=== PATIENT | male | born 1960 | race Caucasian/White ===

== ENCOUNTER 2016-03-25 21:54 | Emergency (ER) | payer OTHER ==
--- NOTE | 2016-03-25 22:03 | UCPHY ---
H & P Time Seen by Provider: 03/25/16 21:59 Patient Type: Established HPI/ROS: 55-year-old male presents complaining of laceration to right pointer finger, reached into a cup and cut it on a razor. Review of systems General no fever no chills no weakness HEENT no eye pain no eye discharge. No eye redness, no sore throat Respiratory no cough, no shortness of breath Cardiac no chest pain, no peripheral edema GI no abdominal pain, no diarrhea, no constipation, no nausea, no vomiting no flank pain, no hematuria, no dysuria Musculoskeletal no myalgias, no joint pain Heme no easy bruising, no easy bleeding Endo no polyuria, no polydipsia Skin no rashes, no pruritus Neuro no syncope, no dizziness, no headaches Psych is no suicidal ideation, no homicidal ideation Past Medical/Surgical History: Diabetes , hypertension Social History: No alcohol no drugs Smoking Status: Never smoked Physical Exam: 55-year-old male alert and oriented no acute distress nontoxic appearance afebrile Atraumatic normocephalic No respiratory distress Appears well Right pointer finger-distal volar tip with 3 x 3 mm area thin layer of avulsion , bleeding Good capillary refill Constitutional: Initial Vital Signs Temperature (C) 36.9 C 03/25/16 22:05 Heart Rate 74 03/25/16 22:05 Respiratory Rate 16 03/25/16 22:05 Blood Pressure 168/90 H 03/25/16 22:05 O2 Sat (%) 95 03/25/16 22:05 O2 Delivery Mode Room Air Allergies/Adverse Reactions: amoxicillin [Amoxicillin] Allergy (Verified 03/25/16 22:04) Rash Home Medications: Medication Instructions Recorded Insulin Glargine,Hum.rec.anlog 20 unit SQ BID 02/21/12 [Lantus] Insulin Lispro [Humalog] 5 unit SQ AC 02/21/12 [place]-3 Fatty Acids/Fish Oil [Fish 1 each PO DAILY 02/21/12 Oil 1,000 mg Capsule] Metoprolol 04/30/12 Ramipril [Altace 2.5mg (RX)] 2.5 mg PO DAILY 04/30/12 Claritin 03/25/16 Praluent Syringe 03/25/16 Medical Decision Making ED Course/Re-evaluation: Patient seen for minor distal finger tip skin avulsion Wound cleansed, and Surgicel snow applied Bleeding controlled Patient's tetanus is up-to-date from 2013 Departure - Departure Disposition: Home, Routine, Self-Care Clinical Impression: Fingertip avulsion Condition: Good Instructions: Skin Avulsion (ED) Referrals: [place],. [Primary Care Provider] - As per Instructions - PQRS PQRS Measurement: na
[2016-03-25 22:12] VITALS: BP 168/90; PULSE 74; RESP 16; TEMP 98.4; O2SAT 95
== END 2016-03-25 22:20 | disposition home or self-care (01) ==
LOC: CED 21:54
DX: S60.410A Abrasion of right index finger, initial encounter (principal); W26.8XXA Contact with other sharp object(s), not elsewhere classified, initial encounter
CPT/HCPCS: G0463-PO